=== PATIENT | female | born 1965 | race Two or more races ===

== ENCOUNTER 2020-08-25 00:13 | Emergency (ER) | payer MEDICAID ==
[~2020-08-25] VITALS: Ht 160 cm; Wt 97.5 kg
[~2020-08-25 00:13] MED LIST: LORA-622 PO
[2020-08-25] MEDS ORDERED: EPINEPHrine HCL 1 MG/1 ML AMP IM ONE ×2 (00:30)
[2020-08-25] MEDS ORDERED: methylPREDNISolone SOD SUCC 125 MG/2 ML VL IV ONE ×2 (00:30)
[2020-08-25] MEDS ORDERED: FAMOTIDINE (10MG/ML) 2ML VL IV ONE ×2 (00:30)
[2020-08-25] MEDS ORDERED: SODIUM CHLORIDE 0.9% 1,000 ML IV ONE ×2 (00:30)
[2020-08-25] MEDS ORDERED: diphenhdrAMINE HCL 50 MG/1 ML VL IV ONE ×2 (00:30)
[2020-08-25 04:54] VITALS: BP 137/91
== END 2020-08-25 04:58 | disposition home or self-care (01) ==
LOC: ER 00:16
DX: T78.2XXA Anaphylactic shock, unspecified, initial encounter (principal); I10 Essential (primary) hypertension; Z90.49 Acquired absence of other specified parts of digestive tract; Z88.6 Allergy status to analgesic agent
CPT/HCPCS: 96361; 96372; 96374; 96375; 99284; J0171; J1200; J2930; J3490; J7030